=== PATIENT | male | born 1985 | race Caucasian/White ===

== ENCOUNTER 2019-02-06 23:25 | Emergency (ER) | payer SELFPAY ==
[2019-02-06] MEDS ORDERED: NORMAL SALINE 1000 ML 1,000 ML IV ONE (23:49)
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
[2019-02-07 00:28] LABS: ABSOLUTE BASOPHILS # (AUTO) 0.1 10^3/uL (0.0-0.2); ABSOLUTE EOSINOPHILS # (AUTO) 0.1 10^3/uL (0.0-0.6); ABSOLUTE LYMPHOCYTES (AUTO) 3.1 10^3/uL (0.5-4.7); ABSOLUTE MONOCYTES (AUTO) 0.6 10^3/uL (0.1-1.4); ABSOLUTE NEUT (AUTO) 3.3 10^3/uL (1.7-8.2); BASOPHILS % (AUTO) 0.7 % (0-2); EOSINOPHILS % (AUTO) 1.9 % (0-6); HEMATOCRIT 42.4 % (37.9-51.0); HEMOGLOBIN 14.7 g/dL (13.5-17.0); LYMPHOCYTES % (AUTO) 43.5 % (13-45); MEAN CORPUSCULAR HEMOGLOBIN 30.1 pg (27.0-33.4); MEAN CORPUSCULAR HGB CONC 34.7 g/dL (32.0-36.0); MEAN CORPUSCULAR VOLUME 87 fl (80-97); MONOCYTES % (AUTO) 7.7 % (3-13); PLATELET COUNT 282 10^3/uL (150-450); RED BLOOD COUNT 4.88 10^6/uL (4.35-5.55); SEGMENTED NEUTROPHILS % (AUTO) 46.2 % (42-78); TOTAL CELLS COUNTED % (AUTO) 100 %; WHITE BLOOD COUNT 7.2 10^3/uL (4.0-10.5)
[2019-02-07 00:30] LABS: APPEARANCE,URINE CLOUDY; BILIRUBIN,URINE NEGATIVE (NEGATIVE); COLOR,URINE AMBER; GLUCOSE, URINE NEGATIVE (NEGATIVE); KETONES,URINE TRACE mg/dL (NEGATIVE); LEUKOCYTE ESTERASE,URINE NEGATIVE (NEGATIVE); NITRITE,URINE NEGATIVE (NEGATIVE); PROTEIN,URINE 30 mg/dL (NEGATIVE); URINE SPECIFIC GRAVITY 1.029
[2019-02-07 00:43] LABS: URINE BARBITURATES SCREEN NEGATIVE; URINE BENZODIAZEPINES SCREEN UNCONFIRMED POSITIVE; URINE COCAINE SCREEN NEGATIVE; URINE MARIJUANA (THC) SCREEN NEGATIVE; URINE METHADONE SCREEN NEGATIVE; URINE PHENCYCLIDINE SCREEN NEGATIVE
[2019-02-07 00:47] LABS: ALANINE AMINOTRANSFERASE 23 U/L (21-72); ALBUMIN 4.9 g/dL (3.5-5.0); ALKALINE PHOSPHATASE 49 U/L (38-126); ANION GAP 8 (5-19); ASPARTATE AMINO TRANSFERASE 24 U/L (17-59); BILIRUBIN,DIRECT 0.1 mg/dL (0.0-0.4); BILIRUBIN,TOTAL 1.8 mg/dL (0.2-1.3); BLOOD UREA NITROGEN 15 mg/dL (7-20); CALCIUM 9.8 mg/dL (8.4-10.2); CARBON DIOXIDE 31 mmol/L (22-30); CHLORIDE 102 mmol/L (98-107); POTASSIUM 3.5 mmol/L (3.6-5.0); TOTAL PROTEIN 8.1 g/dL (6.3-8.2)
[2019-02-07 00:50] LABS: GLUCOSE 66 mg/dL (75-110)
[2019-02-07 00:51] LABS: ALCOHOL < 10 mg/dL (NONE DETECTED)
[2019-02-07 03:17] VITALS: BP 119/90
--- NOTE | 2019-02-07 05:02 | RADIOLOGY REPORT (SQ) ---
Chest single view on 02/07/2019 at 12:49 AM CLINICAL INDICATION: Chest pain COMPARISON: None FINDINGS: The lungs are clear. Cardiac, hilar and mediastinal contours are within normal limits. Pulmonary vascularity is within normal limits. No bony abnormality is noted. IMPRESSION: No active disease.
== END 2019-02-07 03:32 | disposition home or self-care (01) ==
LOC: ER 23:25
DX: T50.904A Poisoning by unspecified drugs, medicaments and biological substances, undetermined, initial encounter (principal); E86.0 Dehydration; X58.XXXA Exposure to other specified factors, initial encounter; F17.200 Nicotine dependence, unspecified, uncomplicated
CPT/HCPCS: 36415; 71045; 80053; 80307; 81001; 82553; 82962; 83735; 84484; 85025; 99284

== ENCOUNTER 2019-03-08 11:31 | Emergency (ER) | payer SELFPAY ==
[2019-03-08] MEDS ORDERED: NORMAL SALINE 1000 ML 1,000 ML IV ONE (12:19)
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
[2019-03-08 13:18] LABS: ABSOLUTE LYMPHOCYTES (AUTO) 2.3 10^3/uL (0.5-4.7); ABSOLUTE MONOCYTES (AUTO) 0.7 10^3/uL (0.1-1.4); ABSOLUTE NEUT (AUTO) 5.8 10^3/uL (1.7-8.2); BASOPHILS % (AUTO) 0.3 % (0-2); EOSINOPHILS % (AUTO) 0.5 % (0-6); HEMATOCRIT 41.5 % (37.9-51.0); HEMOGLOBIN 14.3 g/dL (13.5-17.0); LYMPHOCYTES % (AUTO) 25.7 % (13-45); MEAN CORPUSCULAR HEMOGLOBIN 30.3 pg (27.0-33.4); MEAN CORPUSCULAR HGB CONC 34.6 g/dL (32.0-36.0); MEAN CORPUSCULAR VOLUME 88 fl (80-97); MONOCYTES % (AUTO) 8.4 % (3-13); PLATELET COUNT 300 10^3/uL (150-450); RED BLOOD COUNT 4.74 10^6/uL (4.35-5.55); RED CELL DISTRIBUTION WIDTH 13.5 % (11.5-14.0); SEGMENTED NEUTROPHILS % (AUTO) 65.1 % (42-78); TOTAL CELLS COUNTED % (AUTO) 100 %; WHITE BLOOD COUNT 8.9 10^3/uL (4.0-10.5)
[2019-03-08 13:35] LABS: ALBUMIN 4.8 g/dL (3.5-5.0); ALKALINE PHOSPHATASE 49 U/L (38-126); ANION GAP 11 (5-19); ASPARTATE AMINO TRANSFERASE 26 U/L (17-59); BILIRUBIN,DIRECT 0.2 mg/dL (0.0-0.4); BILIRUBIN,TOTAL 1.3 mg/dL (0.2-1.3); BLOOD UREA NITROGEN 15 mg/dL (7-20); CALCIUM 9.8 mg/dL (8.4-10.2); CARBON DIOXIDE 25 mmol/L (22-30); CHLORIDE 98 mmol/L (98-107); GLUCOSE 87 mg/dL (75-110); POTASSIUM 4.5 mmol/L (3.6-5.0); TOTAL PROTEIN 7.5 g/dL (6.3-8.2)
[2019-03-08 13:37] LABS: ACETAMINOPHEN < 10 ug/mL (10-30); ALCOHOL < 10 mg/dL (NONE DETECTED); SALICYLATE < 1.0 mg/dL (2.0-20.0)
[2019-03-08] MEDS: BENZTROPINE MESYLATE 1 MG TABLET PO SCH (14:03)
[2019-03-08] MEDS: CHLORPROMAZINE HCL 50 MG TABLET PO SCH (14:04)
[2019-03-08 14:23] LABS: APPEARANCE,URINE CLEAR; BILIRUBIN,URINE NEGATIVE (NEGATIVE); COLOR,URINE STRAW; GLUCOSE, URINE NEGATIVE (NEGATIVE); KETONES,URINE NEGATIVE (NEGATIVE); LEUKOCYTE ESTERASE,URINE NEGATIVE (NEGATIVE); NITRITE,URINE NEGATIVE (NEGATIVE); PROTEIN,URINE NEGATIVE (NEGATIVE); URINE SPECIFIC GRAVITY 1.003; UROBILINOGEN,URINE NEGATIVE mg/dL (<2.0)
[2019-03-08 14:39] LABS: URINE BARBITURATES SCREEN NEGATIVE; URINE BENZODIAZEPINES SCREEN NEGATIVE; URINE COCAINE SCREEN NEGATIVE; URINE MARIJUANA (THC) SCREEN NEGATIVE; URINE METHADONE SCREEN NEGATIVE; URINE PHENCYCLIDINE SCREEN NEGATIVE
--- NOTE | 2019-03-08 14:39 | EKG REPORT ---
SEVERITY:- ABNORMAL ECG - SINUS RHYTHM BORDERLINE R WAVE PROGRESSION, ANTERIOR LEADS ST ELEVATION SUGGESTS PERICARDITIS , CLINICAL CORRELATION NEEDED : Confirmed by: Ned Lal MD 08-Mar-2019 14:38:12
[2019-03-08] MEDS ORDERED: ZIPRASIDONE MESYLATE INJ/PF 20 MG SDV IM ONE (16:12)
[2019-03-09] MEDS: CHLORPROMAZINE HCL 50 MG TABLET PO SCH ×5 (00:59→18:45)
[2019-03-09] MEDS: BENZTROPINE MESYLATE 1 MG TABLET PO SCH (10:06)
--- NOTE | 2019-03-09 10:42 | ER Document Report ---
Doctor's Note Notes: 03/09/19 10:41 Patient seen and examined, chart reviewed. In short this is a 34-year-old male, who presents to the emergency department yesterday and full-blown psychosis, likely methamphetamine induced. The patient has very little memory in the way of what going on in the last 24 hours. I asked him if he was interested in any way in a drug rehab program. He states he is, but is afraid to be away from his little boy for too long. He denies any suicidal or homicidal ideation. No visual or auditory hallucination. He denies any medical complaints. He did eat some breakfast. On physical exam is a 34-year-old male who appears his stated age in no acute distress. Head is normocephalic and atraumatic. Dentition exhibits the sequelae of long-term methamphetamine abuse. Oral mucosa is moist. Heart is regular rate and rhythm, lungs are clear to station bilaterally. Patient is mainly cooperative but very guarded. He becomes very aggressive when speaking about his son. At this time he does state he is amenable to the idea of rehab. Will discuss options with family members when they present here. Patient is medically cleared, I do not see indication for CT scan at this time, which was originally ordered yesterday. We will cancel it and continue to monitor. 03/09/19 19:01 I was notified by the charge nurse that patient, who would initially been accepted for evaluation at [facility] for methamphetamine abuse, was turned away. I spoke to the physician in charge. There evidently have been some communication that he required IM medications today, that he was not lucid. I did reiterate to the physician that in fact this was yesterday. He had been in an acute psychosis at that time, and indeed did require that medicine yesterday, but was able to participate in his own care today. I spoken directly to him. He was interested in rehab, understood that it would take time and work, still wanted to go. His brother was present as well and they both reiterated this wish. He is lucid, calm, appropriate. At this time, the physician excepted them back for care at [facility]. He will be sent there for further treatment and evaluation.
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
[2019-03-09 21:27] VITALS: BP 100/74
== END 2019-03-09 20:51 | disposition home or self-care (01) ==
LOC: ER 11:31
DX: F19.10 Other psychoactive substance abuse, uncomplicated (principal); R41.82 Altered mental status, unspecified; F29 Unspecified psychosis not due to a substance or known physiological condition; F17.200 Nicotine dependence, unspecified, uncomplicated
CPT/HCPCS: 93005; 99285; 96361; 96374; 36415; 80307 ×4; 83735; 85025; 80053; 81001; 93010; J3490 ×2; J3486; J7030

== ENCOUNTER 2019-03-09 23:13 | Emergency (ER) | payer SELFPAY ==
--- NOTE | 2019-03-10 03:54 | ER Document Report ---
ED General - General Chief Complaint: Altered Mental Status Stated Complaint: ALTERED MENTAL STATUS Time Seen by Provider: 03/10/19 00:40 Mode of Arrival: Medic Information source: Patient, Emergency Med Personnel Notes: Patient is a 34-year-old male presenting to the emergency department from the [facility] for somnolence. Patient was just transferred to that facility a few hours prior to this visit. Please see previous providers notes. Apparently when this patient was sent over to [facility] the physician over there felt that he was not alert and oriented enough to be safe in their facility. At the time of my initial evaluation patient is alert and oriented but he is sleepy. He currently denies any suicidal homicidal ideations. TRAVEL OUTSIDE OF THE [place] IN LAST 30 DAYS: No - Related Data Allergies/Adverse Reactions: Penicillins Allergy (Verified 03/08/19 11:35) Past Medical History - General Information source: Patient - Social History Smoking Status: Former Smoker Frequency of alcohol use: Occasional Drug Abuse: Methamphetamine Family History: Reviewed & Not Pertinent Patient has suicidal ideation: No Patient has homicidal ideation: No - Past Medical History Cardiac Medical History: Denies: Hx Atrial Fibrillation, Hx Congestive Heart Failure, Hx Coronary Artery Disease, Hx DVT, Hx Heart Attack, Hx Hypercholesterolemia, Hx Hypertension, Hx Peripheral Vascular Disease, Hx Pulmonary Embolism, Hx Heart Murmur Pulmonary Medical History: Denies: Hx Asthma, Hx Bronchitis, Hx COPD, Hx Pneumonia, Hx Intubation, Hx Respiratory Failure, Hx Sleep Apnea, Hx Tuberculosis Neurological Medical History: Denies: Hx Cerebrovascular Accident, Hx Migraine, Hx Seizures Renal/ Medical History: Denies: Hx Peritoneal Dialysis Psychiatric Medical History: Reports: Hx Depression Surgical Hx: Negative - Immunizations Immunizations up to date: Yes Hx Diphtheria, Pertussis, Tetanus Vaccination: Yes - 2011 Review of Systems - Review of Systems Constitutional: No symptoms reported EENT: No symptoms reported Cardiovascular: No symptoms reported Respiratory: No symptoms reported Gastrointestinal: No symptoms reported Genitourinary: No symptoms reported Male Genitourinary: No symptoms reported Musculoskeletal: No symptoms reported Skin: No symptoms reported Hematologic/Lymphatic: No symptoms reported Neurological/Psychological: No symptoms reported Physical Exam - Vital signs Vitals: Resp BP Pulse Ox 12 104/58 L 98 03/09/19 23:11 03/09/19 23:11 03/09/19 23:11 - Notes Notes: PHYSICAL EXAMINATION: GENERAL: Well-nourished and in no acute distress. HEAD: Atraumatic, normocephalic. EYES: Pupils equal round and reactive to light, extraocular movements intact, sclera anicteric, conjunctiva are normal. ENT: Nares patent, oropharynx clear without exudates. Moist mucous membranes. NECK: Normal range of motion, supple without lymphadenopathy LUNGS: Breath sounds clear to auscultation bilaterally and equal. No wheezes rales or rhonchi. HEART: Regular rate and rhythm without murmurs ABDOMEN: Soft, nontender, nondistended abdomen. No guarding, no rebound. No masses appreciated. Musculoskeletal: Normal range of motion, no pitting or edema. No cyanosis. NEUROLOGICAL: Cranial nerves grossly intact. Normal sensory, motor exams PSYCH: Calm, cooperative. SKIN: Warm, Dry, normal turgor, no rashes or lesions noted. Course - Re-evaluation Re-evalutation: Discussed case with Dr. Juarez at time of patient's arrival. Patient was just discharged from this facility a few hours ago. There is no indication for new work-up at this time. I did add on a urine drug screen in case patient had consumed any illicit substances although I do feel this is very unlikely. Patient will be allowed to rest here in the emergency department in hopes of him being more alert in the morning so that the treatment center will feel comfortable admitting him over there. Bedside handoff was given to oncoming shift. - Vital Signs Vital signs: Temp Pulse Resp BP Pulse Ox 97.9 F 17 119/77 97 03/09/19 23:28 03/10/19 06:01 03/10/19 06:01 03/10/19 05:31 Discharge - Discharge Clinical Impression: Methamphetamine abuse Condition: Stable Disposition: HOME, SELF-CARE Additional Instructions: You were reevaluated in the emergency department because the physician at the [facility] felt that your excessively sleepy. We monitored you through the night on a telemetry monitor and feel that it is safe to discharge you at this time. Please return to the emergency department for any new or worsening symptoms.
[2019-03-10 09:18] VITALS: BP 123/68
== END 2019-03-10 09:18 | disposition home or self-care (01) ==
LOC: ER 23:13
DX: F15.10 Other stimulant abuse, uncomplicated (principal); Z87.891 Personal history of nicotine dependence; Z88.0 Allergy status to penicillin
CPT/HCPCS: 99284

== ENCOUNTER 2019-08-08 10:32 | Emergency (ER) | payer OTHER ==
--- NOTE | 2019-08-08 11:34 | ER Document Report ---
ED Medical Screen (RME) - General Chief Complaint: Burn Stated Complaint: BURN ON BOTH LEGS Time Seen by Provider: 08/08/19 11:26 Primary Care Provider: [facility] [Provider Group] - Follow up as needed [facility] [Provider Group] - Follow up as needed [facility] [Provider Group] - Follow up as needed [facility] [Provider Group] - Follow up as needed Mode of Arrival: Ambulatory Information source: Patient Notes: 34-year-old male presented to ED for complaint of dumont to the posterior aspect of bilateral calves. He states he was standing in front of a blow open flame space heater at work when both legs were burned. He does have second-degree dumont. The left leg has 1 larger area that is 2 cm x 3 cm the right leg has a large area that is 6 cm x 4 cm. There are multiple small first-degree dumont to the areas to bilateral posterior calf. I have discussed this treatment with Dr. Aguiar. He recommends cleaning the areas applying bacitracin at this time Telfa and Kerlix and then have him apply Aquaphor 2-3 times a day with Telfa pads and Kerlix. TRAVEL OUTSIDE OF THE [place] IN LAST 30 DAYS: No - HPI Onset: Just prior to arrival Onset/Duration: Sudden Quality of pain: Burning Severity: Moderate Pain Level: 4 Associated Symptoms: Other Exacerbated by: Movement - And posterior both calves, Walking Relieved by: Denies Similar symptoms previously: Yes Recently seen / treated by doctor: No - Related Data Smoking: Non-smoker Frequency of alcohol use: None Drug Abuse: None Allergies/Adverse Reactions: Penicillins Allergy (Verified 03/08/19 11:35) Past Medical History - General Information source: Patient - Social History Cigarette use (# per day): No Frequency of alcohol use: None Drug Abuse: None Occupation: Labor Lives with: Family Family history: Reviewed & Not Pertinent - Past Medical History Cardiac Medical History: Reports: Hx Hypertension Pulmonary Medical History: Reports: None EENT Medical History: Reports: None Neurological Medical History: Reports: None Endocrine Medical History: Reports: None Renal/ Medical History: Reports: None Malignancy Medical History: Reports None GI Medical History: Reports: None Musculoskeltal Medical History: Reports None Skin Medical History: Reports Other - Previous dumont Psychiatric Medical History: Reports: Hx Depression Traumatic Medical History: Reports: None Infectious Medical History: Reports: None Past Surgical History: Reports: Other - Surgical repair from dumont - Immunizations Immunizations up to date: Yes Hx Diphtheria, Pertussis, Tetanus Vaccination: Yes - 2011 Review of Systems - Review of Systems Constitutional: No symptoms reported EENT: No symptoms reported Cardiovascular: No symptoms reported Respiratory: No symptoms reported Gastrointestinal: No symptoms reported Genitourinary: No symptoms reported Male Genitourinary: No symptoms reported Musculoskeletal: No symptoms reported Skin: No symptoms reported, Other - Second-degree dumont to both posterior calves see HPI Hematologic/Lymphatic: No symptoms reported Neurological/Psychological: No symptoms reported Physical Exam - Vital signs Vitals: Temp Pulse Resp BP Pulse Ox 98.3 F 73 18 163/111 H 100 08/08/19 11:14 08/08/19 11:14 08/08/19 11:14 08/08/19 11:14 08/08/19 11:14 Interpretation: Normal - General General appearance: Appears well, Alert - HEENT Head: Normocephalic, Atraumatic Eyes: Normal Pupils: PERRL - Respiratory Respiratory status: No respiratory distress Chest status: Nontender Breath sounds: Normal Chest palpation: Normal - Cardiovascular Rhythm: Regular Heart sounds: Normal auscultation Murmur: No - Abdominal Inspection: Normal Distension: No distension Bowel sounds: Normal Tenderness: Nontender Organomegaly: No organomegaly - Back Back: Normal, Nontender - Extremities General upper extremity: Normal inspection, Nontender, Normal color, Normal ROM, Normal temperature General lower extremity: Normal ROM, Normal temperature, Normal weight bearing. No: Jeffrey's sign Calf: Other - He does have second-degree dumont. The left leg has 1 larger area that is 2 cm x 3 cm the right leg has a large area that is 6 cm x 4 cm. There are multiple small first-degree dumont to the areas to bilateral posterior calf. - Neurological Neuro grossly intact: Yes Cognition: Normal Orientation: AAOx4 Dara Coma Scale Eye Opening: Spontaneous Casanova Coma Scale Verbal: Oriented Casanova Coma Scale Motor: Obeys Commands Dara Coma Scale Total: 15 Speech: Normal Motor strength normal: LUE, RUE, LLE, RLE Sensory: Normal - Psychological Associated symptoms: Normal affect, Normal mood - Skin Skin Temperature: Warm Skin Moisture: Dry Skin Color: Normal Location of irregularity: Extremities - He does have second-degree dumont. The left leg has 1 larger area that is 2 cm x 3 cm the right leg has a large area that is 6 cm x 4 cm. There are multiple small first-degree dumont to the areas to bilateral posterior calf. Character of irregularity: Erythematous Irregularity with: Swelling, Tenderness Course - Vital Signs Vital signs: Temp Pulse Resp BP Pulse Ox 98.2 F 82 16 128/73 H 96 08/08/19 12:15 08/08/19 12:15 08/08/19 12:15 08/08/19 12:15 08/08/19 12:15 Doctor's Discharge - Discharge Clinical Impression: degree dumont to both calves Condition: Stable Disposition: HOME, SELF-CARE Additional Instructions: Dumont The seriousness of a burn is not always obvious at first. Delayed tissue damage and secondary infection may occur despite proper treatment. Proper care is very important. A burn that is third-degree may need skin grafting. Most dumont, however, are simply protected with dressings until healed. Keep the burn clean. If the dressing gets wet, remove it and blot the wound dry, then apply a fresh dressing. Please use Aquaphor on Telfa dressings then wrapped with Kerlix loosely. Dressings should be changed at least once daily. Soaks to remove crusting are usually started in about two days. Dumont in certain areas require stretching to prevent disabling tightness. Your doctor will advise you about this. For pain control, you may frequently apply a hand towel that has been dipped in water with ice cubes. Do not apply ice directly to the burned areas. If any signs of infection occur (swelling, redness, increasing tenderness, red streaks, tender lumps in the armpit or groin above the burn, or fever), contact the doctor immediately. Elevate the Injury Because of the nature of your injury, elevation will be helpful to reduce swelling. This also reduces infection risk in wounds. Keep the injury up above the level of your heart for at least the next 48 hours (or longer if the physician recommends it). TETANUS IMMUNIZATION GIVEN: You have been given an immunization against tetanus. Please record this in your records. In general, a booster is needed only once every 10 years. The tetanus shot protects against tetanus or "lockjaw," which is a complication of certain wound infections (the tetanus shot cannot protect against the actual infection). The immunization site may become warm and red due to local reaction. If this occurs, apply warm compresses and take aspirin or ibuprofen to reduce inflammation and discomfort. Return for evaluation if the reaction becomes severe. ORAL NARCOTIC MEDICATION: You have been given a [place] dispense pack for pain control. This medication is a narcotic. It's best taken with food, as nausea can result if taken on an empty stomach. Don't operate machinery or drive within six hours of taking this medication. Do not combine this medicine with alcohol, or with any medication which can cause sedation (such as cold tablets or sleeping pills) unless you get permission from the physician. Narcotics tend to cause constipation. If possible, drink plenty of fluids and eat a diet high in fiber and fruits. FOLLOW-UP CARE: If you have been referred to a physician for follow-up care, call the physicians office for an appointment as you were instructed or within the next two days. If you experience worsening or a significant change in your symptoms, notify the physician immediately or return to the Emergency Department at any time for re-evaluation. Forms: Elevated Blood Pressure, Return to Work Referrals: [facility] [Provider Group] - Follow up as needed [facility] [Provider Group] - Follow up as needed [facility] [Provider Group] - Follow up as needed [facility] [Provider Group] - Follow up as needed
[2019-08-08] MEDS ORDERED: DIPH/PERTUSS(ACELL)/TETANUS VAC/PF 0.5 ML SYR (>=10YO) IM ONE (11:36)
[2019-08-08] MEDS ORDERED: HYDROCODONE/ACETAMINOPHEN 5-325 MG (6 TAB/ER DISP) PO PRN (11:36)
[2019-08-08 12:16] VITALS: BP 128/73
== END 2019-08-08 12:21 | disposition home or self-care (01) ==
LOC: ER 10:32
DX: T24.231A Burn of second degree of right lower leg, initial encounter (principal); T24.232A Burn of second degree of left lower leg, initial encounter; X08.8XXA Exposure to other specified smoke, fire and flames, initial encounter; Y99.0 Civilian activity done for income or pay; I10 Essential (primary) hypertension; Z88.0 Allergy status to penicillin
CPT/HCPCS: 90471; 90715; 99283

== ENCOUNTER 2020-05-11 21:11 | Emergency (ER) | payer SELFPAY ==
[2020-05-11 21:31] VITALS: BP 147/90
[2020-05-11] MEDS ORDERED: CLINDAMYCIN HCL 150 MG CAPSULE PO ONE (21:59)
--- NOTE | 2020-05-11 21:59 | ER Document Report ---
HPI - HPI Time Seen by Provider: 05/11/20 21:52 Context: Patient is a 35-year-old male who presents emergency department with a chief complaint of facial pressure. Patient states that he has had his symptoms for the past week or so. Denies any fever. Denies any purulent drainage. Patient also reports that he does have poor dentition. Denies any contact with anybody who has tested positive for COVID-19. - CONSTITUTIONAL Constitutional: DENIES: Fever, Chills - EENT EENT: DENIES: Ear Pain, Nasal Drainage-Clear, Nasal Drainage-Purulent Notes: Left maxillary pain. - CARDIOVASCULAR Cardiovascular: DENIES: Chest pain - RESPIRATORY Respiratory: DENIES: Trouble Breathing, Coughing - GASTROINTESTINAL Gastrointestinal: DENIES: Abdominal Pain, Nausea, Patient vomiting - REPRODUCTIVE Reproductive: DENIES: : - MUSCULOSKELETAL Musculoskeletal: DENIES: Extremity pain - DERM Skin Color: Normal Skin Problems: None Past Medical History - General Information source: Patient - Social History Smoking Status: Current Every Day Smoker - Vape Family History: Reviewed & Not Pertinent - Past Medical History Cardiac Medical History: Reports: Hx Hypertension Denies: Hx Atrial Fibrillation, Hx Congestive Heart Failure, Hx Coronary Artery Disease, Hx DVT, Hx Heart Attack, Hx Hypercholesterolemia, Hx Peripheral Vascular Disease, Hx Pulmonary Embolism, Hx Heart Murmur Pulmonary Medical History: Denies: Hx Asthma, Hx Bronchitis, Hx COPD, Hx Pneumonia, Hx Intubation, Hx Respiratory Failure, Hx Sleep Apnea, Hx Tuberculosis Neurological Medical History: Denies: Hx Cerebrovascular Accident, Hx Migraine, Hx Seizures Renal/ Medical History: Denies: Hx Peritoneal Dialysis Psychiatric Medical History: Reports: Hx Depression Past Surgical History: Reports: Other - Surgical repair from givens - Immunizations Immunizations up to date: Yes Hx Diphtheria, Pertussis, Tetanus Vaccination: Yes - 2011 Vertical Provider Document - CONSTITUTIONAL Agree With Documented VS: Yes Exam Limitations: No Limitations General Appearance: No Apparent Distress - INFECTION CONTROL TRAVEL OUTSIDE OF THE [place] IN LAST 30 DAYS: No - HEENT HEENT: Atraumatic, Normocephalic, PERRLA. negative: Conjuctival Injection, Pharyngeal Tenderness Mouth Diagram: 1 - Very poor dentition - NECK Neck: Normal Inspection - RESPIRATORY Respiratory: Breath Sounds Normal, No Respiratory Distress - CARDIOVASCULAR Cardiovascular: Regular Rate, Regular Rhythm Pulses: Normal: Radial - MUSCULOSKELETAL/EXTREMETIES Musculoskeletal/Extremeties: FROM - NEURO Level of Consciousness: Awake, Alert, Appropriate Motor/Sensory: No Motor Deficit, No Sensory Deficit - DERM Integumentary: Warm, Dry, No Rash Course - Re-evaluation Re-evalutation: 05/11/20 22:05 Patient's physical exam and history is most consistent with a infected tooth. Patient is able to swallow, no facial swelling noted, airway is patent, vital signs are normal. I do not suspect Hilario's angina, peritonsilar abscess, or airway obstruction. The patient will be started on oral antibiotics. He also has more pressure where his teeth are than where his sinuses are. I have given the patient education on their antibiotics. Patient was given instructions to follow-up with a dentist this week. Return precautions were given. Verbal discharge instructions were given. Patient verbalized understanding. Patient is stable for discharge. - Vital Signs Vital signs: Temp Pulse Resp BP Pulse Ox 98.2 F 89 16 147/90 H 100 05/11/20 21:29 05/11/20 21:29 05/11/20 21:29 05/11/20 21:29 05/11/20 21:29 Discharge - Discharge Clinical Impression: Facial pain, Dental caries Condition: Stable Disposition: HOME, SELF-CARE Additional Instructions: You have been seen in the emergency department for facial pain. You may take ibuprofen 600 mg and Tylenol 1000 mg every 6 hours as needed for the pain. You have also been prescribed antibiotics. Please take the antibiotics as prescribed, even if you start to feel better. If you develop a fever greater than 100.4 F, or have any symptoms that are worrisome to you, please return to the emergency department. Please follow-up with a dentist this week in regards to your visit. Follow-up with the dentist below. Call them and make an appointment. Prescriptions: Clindamycin HCl [Cleocin 150 mg Capsule] 300 mg PO Q6 7 Days #56 capsule Referrals: [facility] [Provider Group] - Follow up in 1 week
== END 2020-05-11 22:15 | disposition home or self-care (01) ==
LOC: ER 21:11
DX: R51.9 Headache, unspecified (principal); K02.9 Dental caries, unspecified; F17.290 Nicotine dependence, other tobacco product, uncomplicated; I10 Essential (primary) hypertension
CPT/HCPCS: 99283